=== PATIENT | female | born 1960 | race Hispanic/Latino ===

== ENCOUNTER → 2021-04-22 | Day surgery (SDC) | payer MEDICARE ==
[2021-04-20 13:38] LABS: BASOPHILS % 0.4 % (0.0-1.0); EOSINOPHILS # (AUTO) 0.2 (0.0-0.4); EOSINOPHILS % 2.6 % (0.0-6.0); HEMATOCRIT 32.7 % (34.2-44.1); HEMOGLOBIN 10.8 g/dL (12.0-16.0); LYMPHOCYTES # (AUTO) 2.3 (1.0-3.2); LYMPHOCYTES % 29.4 % (18.0-39.1); MEAN CORPUSCULAR HEMOGLOBIN 28.1 pg (28-32); MEAN CORPUSCULAR VOLUME 84.9 fL (81-99); MONOCYTES # (AUTO) 0.5 (0.2-0.8); MONOCYTES % 6.9 % (4.4-11.3); NEUTROPHILS # (AUTO) 4.7 (2.1-6.9); NEUTROPHILS % 60.4 % (38.7-80.0); PLATELET COUNT 237 x10e3/uL (140-360); RED BLOOD COUNT 3.85 x10e6/uL (3.6-5.1); RED CELL DISTRIBUTION WIDTH 12.4 % (11.7-14.4)
[~2021-04-22] MED LIST: ASPIRIN81 MG PO; EPHEDRINE SULFATE INJ 50 MG/ML VIAL ONE; GLIMEPIRIDE2 MG PO; GLIPIZIDE ER5 MG PO; GLYBURIDE-METF1 EAC1 PO; LIDOCAINE HCL 2% LOCAL INJ 5 ML SDV VIAL INJ ONE; LIPITOR10 MG PO; METOPROLOL SUCC25 MG PO; PLAVIX75 MG PO; PROPOFOL IV EMULSION 10 MG/ML 20 ML VIAL ONE; ZESTRIL10 MG PO
[2021-04-22 08:32] VITALS: BP 150/72
== END | disposition home or self-care (01) ==
LOC: OR 06:22
PROVIDERS: ATTEND Internal Medicine Gastroenterology
DX: Z12.11 Encounter for screening for malignant neoplasm of colon (principal); D12.5 Benign neoplasm of sigmoid colon; K64.8 Other hemorrhoids; I10 Essential (primary) hypertension; E11.9 Type 2 diabetes mellitus without complications; E78.5 Hyperlipidemia, unspecified; Z01.810 Encounter for preprocedural cardiovascular examination; Z01.812 Encounter for preprocedural laboratory examination; Z20.822 Contact with and (suspected) exposure to COVID-19; Z79.02 Long term (current) use of antithrombotics/antiplatelets; Z79.82 Long term (current) use of aspirin; Z79.84 Long term (current) use of oral hypoglycemic drugs; Z86.73 Personal history of transient ischemic attack (TIA), and cerebral infarction without residual deficits; Z86.16 Personal history of COVID-19
CPT/HCPCS: 36415 ×2; 45380; 45381; 82948; 85025; 93005; J2001; J2704; U0002; 45378

== ENCOUNTER 2023-09-07 16:55 | Emergency (ER) | payer MEDICARE ==
[~2023-09-07] VITALS: Ht 160 cm; Wt 82.6 kg
[~2023-09-07 16:55] MED LIST changes: +ALDACTONE25 MG PO; +ASPIRIN EC81 MG PO; +ENTRESTO 49 MG1 EACH; -EPHEDRINE SULFATE INJ 50 MG/ML VIAL ONE; +HUMULIN R100 UNIT/2 INJ; +LANTUS 3ML100 UNITS/; +LASIX40 MG PO; -LIDOCAINE HCL 2% LOCAL INJ 5 ML SDV VIAL INJ ONE; -PROPOFOL IV EMULSION 10 MG/ML 20 ML VIAL ONE
[2023-09-07 17:38] LABS: BASOPHILS % 0.2 % (0.0-1.0); EOSINOPHILS # (AUTO) 0.1 (0.0-0.4); EOSINOPHILS % 1.5 % (0.0-6.0); HEMATOCRIT 30.1 % (34.2-44.1); HEMOGLOBIN 9.4 g/dL (12.0-16.0); LYMPHOCYTES # (AUTO) 0.9 (1.0-3.2); LYMPHOCYTES % 9.6 % (18.0-39.1); MEAN CORPUSCULAR HEMOGLOBIN 27.1 pg (28-32); MEAN CORPUSCULAR HGB CONC 31.2 g/dL (31-35); MEAN CORPUSCULAR VOLUME 86.7 fL (81-99); MONOCYTES # (AUTO) 0.6 (0.2-0.8); MONOCYTES % 6.4 % (4.4-11.3); NEUTROPHILS # (AUTO) 7.5 (2.1-6.9); NEUTROPHILS % 81.9 % (38.7-80.0); PLATELET COUNT 239 x10e3/uL (140-360); RED BLOOD COUNT 3.47 x10e6/uL (3.6-5.1); RED CELL DISTRIBUTION WIDTH 14.2 % (11.7-14.4); WHITE BLOOD COUNT 9.12 x10e3/uL (4.8-10.8)
[2023-09-07 17:50] LABS: ALBUMIN 3.7 g/dL (3.5-5.0); ALBUMIN/GLOBULIN RATIO 1.1 (0.8-2.0); BILIRUBIN,TOTAL 0.7 mg/dL (0.2-1.2); CALCIUM 9.1 mg/dL (8.4-10.2); CREATININE, SERUM 1.18 mg/dL (0.57-1.11); TOTAL PROTEIN 7.2 g/dL (6.5-8.1)
[2023-09-07] MEDS ORDERED: ASPIRIN 325 MG TAB PO STA (18:55)
[2023-09-07] MEDS ORDERED: ASPIRIN 81 MG CHEW TAB ONE (19:09)
[2023-09-07] MEDS ORDERED: HEPARIN 25,000 UNIT DRIP IV ONE (19:11)
[2023-09-07] MEDS: FUROSEMIDE INJ 10 MG/ML 4 ML VIAL IV STA (19:17)
[2023-09-07] MEDS: ASPIRIN 81 MG CHEW TAB PO ONE (19:25)
[2023-09-07 19:39] LABS: INR 1.16; PARTIAL THROMBOPLASTIN TIME 28.1 seconds (23.8-35.5)
[2023-09-07] MEDS: HEPARIN SOD (PORCINE) 1000 UNIT/ML SDV IV ONE (19:43)
[2023-09-07] MEDS: HEPARIN 25,000 UNIT/D5W 250ML 800 UNIT in DEXTROSE 5% 250ML 250 ML IV SCH (19:44)
[2023-09-07 21:57] VITALS: O2SAT 97
== END 2023-09-07 22:05 | disposition other institution (70) ==
LOC: ER 17:04
DX: R06.00 Dyspnea, unspecified (principal); I21.4 Non-ST elevation (NSTEMI) myocardial infarction; I50.9 Heart failure, unspecified; Z11.52 Encounter for screening for COVID-19; R94.31 Abnormal electrocardiogram [ECG] [EKG]
CPT/HCPCS: 36415; 71045; 80053; 83880; 84484; 85025; 85610; 85730; 93005; 99284; J1644; J1940; U0002

== ENCOUNTER 2024-12-11 19:37 | Inpatient (IN) | payer MEDICARE ==
[~2024-12-11] VITALS: Ht 160 cm; Wt 79.4 kg
[2024-12-11 19:42] VITALS: PULSE 64; RESP 19; TEMP 98.4
[2024-12-11 20:25] LABS: BASOPHILS # (AUTO) 0.1 (0.0-0.1); BASOPHILS % 0.6 % (0.0-1.0); EOSINOPHILS # (AUTO) 0.2 (0.0-0.4); EOSINOPHILS % 2.9 % (0.0-6.0); HEMATOCRIT 29.8 % (34.2-44.1); HEMOGLOBIN 9.3 g/dL (12.0-16.0); LYMPHOCYTES # (AUTO) 1.9 (1.0-3.2); LYMPHOCYTES % 23.2 % (18.0-39.1); MEAN CORPUSCULAR HEMOGLOBIN 27.9 pg (28-32); MEAN CORPUSCULAR HGB CONC 31.2 g/dL (31-35); MEAN CORPUSCULAR VOLUME 89.5 fL (81-99); MONOCYTES # (AUTO) 0.5 (0.2-0.8); MONOCYTES % 5.9 % (4.4-11.3); NEUTROPHILS # (AUTO) 5.5 (2.1-6.9); NEUTROPHILS % 67.2 % (38.7-80.0); PLATELET COUNT 247 x10e3/uL (140-360); RED BLOOD COUNT 3.33 x10e6/uL (3.6-5.1); RED CELL DISTRIBUTION WIDTH 16.5 % (11.7-14.4); WHITE BLOOD COUNT 8.19 x10e3/uL (4.8-10.8)
[2024-12-11 20:54] LABS: ALBUMIN 3.7 g/dL (3.5-5.0); ALBUMIN/GLOBULIN RATIO 1.2 (0.8-2.0); BILIRUBIN,TOTAL 0.8 mg/dL (0.2-1.2); CALCIUM 9.1 mg/dL (8.4-10.2); CREATININE, SERUM 1.33 mg/dL (0.57-1.11); TOTAL PROTEIN 6.9 g/dL (6.5-8.1)
[2024-12-11 20:59] LABS: TROPONIN I 0.053 ng/mL (0-0.300)
[2024-12-11] MEDS ORDERED: SODIUM CHLORIDE FLUSH 10 ML SYR INJ PRN (21:30)
[2024-12-11] MEDS ORDERED: Morphine 4mg INJECTION 4 MG/ML INJ IV PRN (21:30)
[2024-12-11] MEDS ORDERED: ONDANSETRON HCL INJ 2MG/ML 2ML 2 MG/ML VIAL IV PRN (21:30)
[2024-12-11] MEDS: FUROSEMIDE INJ 10 MG/ML 4 ML VIAL IV STA (22:06)
[2024-12-11 22:10] VITALS: BP 132/60; PULSE 63; RESP 18; TEMP 97.5; O2SAT 100
[2024-12-11 23:55] VITALS: PULSE 63; RESP 18; O2SAT 93
[2024-12-12] VITALS (10 sets, daily range): BP systolic 105–142; BP diastolic 51–70; PULSE 60–89; RESP 18; TEMP 97.2–98; O2SAT 92–100
[2024-12-12] MEDS ORDERED: TRESIBA FL100 UNIT/1 SC (01:26)
[2024-12-12] MEDS ORDERED: ALDACTONE50 MG PO (01:26)
[2024-12-12] MEDS ORDERED: BUMETANIDE1 MG PO (01:26)
[2024-12-12] MEDS ORDERED: ENTRESTO 24 MG1 EACH PO (01:26)
[2024-12-12] MEDS ORDERED: HUMALOG MI100 UNIT/2 SQ (01:27)
[2024-12-12 05:07] LABS: BASOPHILS % 0.5 % (0.0-1.0); EOSINOPHILS # (AUTO) 0.2 (0.0-0.4); EOSINOPHILS % 2.7 % (0.0-6.0); HEMATOCRIT 28.1 % (34.2-44.1); HEMOGLOBIN 8.8 g/dL (12.0-16.0); LYMPHOCYTES # (AUTO) 1.9 (1.0-3.2); MEAN CORPUSCULAR HEMOGLOBIN 28.1 pg (28-32); MEAN CORPUSCULAR HGB CONC 31.3 g/dL (31-35); MEAN CORPUSCULAR VOLUME 89.8 fL (81-99); MONOCYTES # (AUTO) 0.5 (0.2-0.8); MONOCYTES % 6.3 % (4.4-11.3); NEUTROPHILS # (AUTO) 5.5 (2.1-6.9); NEUTROPHILS % 67.3 % (38.7-80.0); PLATELET COUNT 232 x10e3/uL (140-360); RED BLOOD COUNT 3.13 x10e6/uL (3.6-5.1); RED CELL DISTRIBUTION WIDTH 16.5 % (11.7-14.4); WHITE BLOOD COUNT 8.19 x10e3/uL (4.8-10.8)
[2024-12-12 05:44] LABS: ALBUMIN 3.4 g/dL (3.5-5.0); ALBUMIN/GLOBULIN RATIO 1.2 (0.8-2.0); ANION GAP 15.6 mmol/L (8-16); BILIRUBIN,TOTAL 0.9 mg/dL (0.2-1.2); CALCIUM 8.9 mg/dL (8.4-10.2); CREATININE, SERUM 1.04 mg/dL (0.57-1.11); POTASSIUM 3.6 mmol/L (3.5-5.1); TOTAL PROTEIN 6.3 g/dL (6.5-8.1)
[2024-12-12 05:50] LABS: TROPONIN I 0.042 ng/mL (0-0.300)
[2024-12-12 13:57] LABS: TROPONIN I 0.034 ng/mL (0-0.300)
[2024-12-12] MEDS ORDERED: CLOPIDOGREL75 MG PO (15:45)
[2024-12-12] MEDS: FUROSEMIDE INJ 10 MG/ML 4 ML VIAL IV SCH (15:47)
[2024-12-12] MEDS: ENOXAPARIN SOD INJ 40 MG/0.4 ML SYR SC SCH (17:22)
[2024-12-12] MEDS: SACUBITRIL/VALSARTAN 24MG/26MG 1 EA TAB PO SCH (21:26)
[2024-12-12] MEDS: ATORVASTATIN 40 MG TAB PO SCH (21:27)
[2024-12-12] MEDS ORDERED: DEXTROSE 50% SYRINGE 50 ML IV PRN (21:45)
[2024-12-12] MEDS: INSULIN LISPRO 100 UNIT/1 ML 3ML VIAL SQ SCH (21:59)
[2024-12-13] VITALS (11 sets, daily range): BP systolic 119–139; BP diastolic 53–72; PULSE 59–68; RESP 18–20; TEMP 97–98.4; O2SAT 96–100
[2024-12-13] MEDS: ASPIRIN 81 MG ENTERIC COATED PO SCH (08:26)
[2024-12-13] MEDS: SPIRONOLACTONE 25 MG TAB PO SCH (08:26)
[2024-12-13] MEDS: CLOPIDOGREL BISULFATE 75 MG TAB PO SCH (08:27)
[2024-12-13] MEDS: METOPROLOL SUCCINATE 25 MG TAB XL PO SCH (08:27)
[2024-12-14 03:00] VITALS: BP 106/40; PULSE 62; RESP 18; TEMP 98; O2SAT 100
[2024-12-14 06:50] LABS: BASOPHILS % 0.6 % (0.0-1.0); EOSINOPHILS # (AUTO) 0.3 (0.0-0.4); HEMATOCRIT 27.9 % (34.2-44.1); HEMOGLOBIN 8.8 g/dL (12.0-16.0); LYMPHOCYTES # (AUTO) 1.7 (1.0-3.2); LYMPHOCYTES % 24.4 % (18.0-39.1); MEAN CORPUSCULAR HEMOGLOBIN 27.9 pg (28-32); MEAN CORPUSCULAR HGB CONC 31.5 g/dL (31-35); MEAN CORPUSCULAR VOLUME 88.6 fL (81-99); MONOCYTES # (AUTO) 0.5 (0.2-0.8); MONOCYTES % 7.8 % (4.4-11.3); NEUTROPHILS # (AUTO) 4.3 (2.1-6.9); NEUTROPHILS % 62.8 % (38.7-80.0); PLATELET COUNT 243 x10e3/uL (140-360); RED BLOOD COUNT 3.15 x10e6/uL (3.6-5.1); RED CELL DISTRIBUTION WIDTH 16.3 % (11.7-14.4); WHITE BLOOD COUNT 6.81 x10e3/uL (4.8-10.8)
[2024-12-14 07:17] LABS: ANION GAP 14.9 mmol/L (8-16); CREATININE, SERUM 1.05 mg/dL (0.57-1.11); MAGNESIUM 2.4 MG/DL (1.3-2.1); PHOSPHORUS 3.5 MG/DL (2.3-4.7); POTASSIUM 3.9 mmol/L (3.5-5.1)
[2024-12-14] MEDS: METOLAZONE 5 MG TAB PO SCH (08:50)
[2024-12-14 08:51] VITALS: BP 111/71; PULSE 62; RESP 18; TEMP 97.8; O2SAT 100
[2024-12-14 09:00] VITALS: BP 111/71; PULSE 62; RESP 18; TEMP 97.8; O2SAT 100
[2024-12-14 11:08] VITALS: BP 127/59; PULSE 62; RESP 18; TEMP 97.8; O2SAT 100
[2024-12-14] MEDS: ASCORBIC ACID 500 MG TAB PO SCH (13:30)
[2024-12-14] MEDS: FERROUS SULFATE 325 MG TAB PO SCH (13:30)
[2024-12-14] MEDS ORDERED: IRON325 M1 PO (17:23)
[2024-12-14] MEDS ORDERED: FUROSEMIDE40 MG PO (17:23)
[2024-12-14] MEDS ORDERED: ASCORBIC ACID500 MG PO (17:23)
[2024-12-14] MEDS ORDERED: METOLAZONE5 MG PO (17:23)
[2024-12-14] MEDS ORDERED: ALDACTONE25 MG PO (17:23)
[2024-12-14] MEDS: FUROSEMIDE 40 MG TAB PO SCH (17:44)
[2024-12-15] MEDS ORDERED: SPIRONOLACTONE 25 MG TAB PO SCH (09:00)
== END 2024-12-14 19:25 | disposition home or self-care (01) | DRG 291 ==
LOC: ER 19:46 → ERHOLD 21:21 → MED/SURG 22:20
PROVIDERS: ADMIT Internal Medicine; ATTEND Internal Medicine
DX: I11.0 Hypertensive heart disease with heart failure (principal); I50.23 Acute on chronic systolic (congestive) heart failure; E78.5 Hyperlipidemia, unspecified; I07.1 Rheumatic tricuspid insufficiency; D50.9 Iron deficiency anemia, unspecified; I25.10 Atherosclerotic heart disease of native coronary artery without angina pectoris; Z95.1 Presence of aortocoronary bypass graft; Z95.5 Presence of coronary angioplasty implant and graft; Z95.810 Presence of automatic (implantable) cardiac defibrillator; E11.51 Type 2 diabetes mellitus with diabetic peripheral angiopathy without gangrene; Z79.4 Long term (current) use of insulin; K21.9 Gastro-esophageal reflux disease without esophagitis; D64.9 Anemia, unspecified; Z89.612 Acquired absence of left leg above knee; Z79.899 Other long term (current) drug therapy; Z79.82 Long term (current) use of aspirin; Z79.02 Long term (current) use of antithrombotics/antiplatelets
CPT/HCPCS: 36415; 71045; 80048; 80053; 82550; 82607; 82728; 82746; 82948; 83540; 83690; 83735; 83880; 84100; 84466; 84484; 85025; 85045; 86850; 86900; 93005; 93306; 94799; 96372; 99284; J1650; J1938

== ENCOUNTER 2025-02-12 04:59 | Inpatient (IN) | payer MEDICARE ==
[~2025-02-12] VITALS: Ht 160 cm; Wt 79.4 kg
[2025-02-12] VITALS (11 sets, daily range): BP systolic 100–139; BP diastolic 50–67; PULSE 60–64; RESP 16–24; TEMP 97.6–98.1; O2SAT 97–100
[~2025-02-12 04:59] MED LIST changes: +ALDACTONE50 MG PO; +ASCORBIC ACID500 MG PO; +BUMETANIDE1 MG PO; +CLOPIDOGREL75 MG PO; +ENTRESTO 24 MG1 EACH PO; +FUROSEMIDE40 MG PO; +HUMALOG MI100 UNIT/2 SQ; +IRON325 M1 PO; +METOLAZONE5 MG PO; +TRESIBA FL100 UNIT/1 SC
[2025-02-12 05:23] LABS: BASOPHILS % 0.4 % (0.0-1.0); EOSINOPHILS % 2.1 % (0.0-6.0); LYMPHOCYTES % 20.7 % (18.0-39.1); MONOCYTES % 6.0 % (4.4-11.3); NEUTROPHILS % 70.4 % (38.7-80.0); RED CELL DISTRIBUTION WIDTH 16.2 % (11.7-14.4)
[2025-02-12] MEDS: ASPIRIN 81 MG CHEW TAB PO ONE (05:38)
[2025-02-12 05:48] LABS: EST GLOMERULAR FILTRATION RATE 47.0 ML/MIN (>=60)
[2025-02-12] MEDS ORDERED: Morphine 4mg INJECTION 4 MG/ML INJ IV PRN (06:00)
[2025-02-12] MEDS ORDERED: SODIUM CHLORIDE FLUSH 10 ML SYR INJ PRN (06:00)
[2025-02-12] MEDS ORDERED: ONDANSETRON HCL INJ 2MG/ML 2ML 2 MG/ML VIAL IV PRN (06:00)
[2025-02-12] MEDS ORDERED: METOPROLOL TARTRATE INJ 1 MG/ML VIAL IV PRN (08:45)
[2025-02-12] MEDS ORDERED: ACETAMINOPHEN 325 MG TAB PO PRN (08:45)
[2025-02-12] MEDS ORDERED: DOCUSATE SODIUM 100 MG CAP PO PRN (08:45)
[2025-02-12] MEDS ORDERED: MELATONIN 3 MG TAB PO PRN (08:45)
[2025-02-12] MEDS ORDERED: ALBUTEROL/IPRATROPIUM 3 ML NEB NEB PRN (08:45)
[2025-02-12] MEDS ORDERED: VALSARTAN PO SCH (09:00)
[2025-02-12] MEDS: ASPIRIN 81 MG ENTERIC COATED PO SCH (09:00)
[2025-02-12] MEDS ORDERED: SACUBITRIL PO SCH (09:00)
[2025-02-12] MEDS ORDERED: DEXTROSE 50% SYRINGE 50 ML IV PRN (09:00)
[2025-02-12] MEDS: FUROSEMIDE INJ 10 MG/ML 2 ML VIAL IV SCH (09:37)
[2025-02-12 10:25] LABS: CHOL/HDL RATIO 3.8 (3.0-3.6); LDL CHOLESTEROL 70.0 MG/DL (60-130)
[2025-02-12] MEDS: CLOPIDOGREL BISULFATE 75 MG TAB PO SCH (10:58)
[2025-02-12] MEDS: FERROUS SULFATE 325 MG TAB PO SCH (10:58)
[2025-02-12] MEDS: MIDODRINE HCL 5 MG TABLET PO SCH (10:58)
[2025-02-12] MEDS ORDERED: ROSUVASTATIN CA10 MG PO (11:22)
[2025-02-12] MEDS: INSULIN REGULAR, HUMAN 100 UNIT/1 ML SQ SCH (11:30)
[2025-02-12] MEDS: ENOXAPARIN SOD INJ 40 MG/0.4 ML SYR SC SCH (16:37)
[2025-02-12] MEDS: ATORVASTATIN 40 MG TAB PO SCH (21:04)
[2025-02-13] VITALS (10 sets, daily range): BP systolic 101–164; BP diastolic 50–78; PULSE 59–74; RESP 18–20; TEMP 97.6–98.5; O2SAT 96–100
[2025-02-13 06:16] LABS: BASOPHILS % 0.7 % (0.0-1.0); EOSINOPHILS % 3.0 % (0.0-6.0); LYMPHOCYTES % 18.4 % (18.0-39.1); MONOCYTES % 6.3 % (4.4-11.3); NEUTROPHILS % 71.1 % (38.7-80.0); RED CELL DISTRIBUTION WIDTH 16.4 % (11.7-14.4)
[2025-02-13 06:45] LABS: EST GLOMERULAR FILTRATION RATE 69.0 ML/MIN (>=60)
[2025-02-13] MEDS: METOPROLOL SUCCINATE 25 MG TAB XL PO SCH (09:47)
[2025-02-13] MEDS: SACUBITRIL/VALSARTAN 24MG/26MG 1 EA TAB PO SCH (16:21)
[2025-02-14 03:23] VITALS: BP 115/43; PULSE 62; RESP 18; TEMP 97.9; O2SAT 96
[2025-02-14 07:35] VITALS: PULSE 72; RESP 18; O2SAT 97
[2025-02-14] MEDS ORDERED: TOPROL XL25 MG PO (07:40)
[2025-02-14] MEDS ORDERED: IRON325 M1 PO (07:40)
[2025-02-14] MEDS ORDERED: ROSUVASTATIN CA10 MG PO (07:40)
[2025-02-14] MEDS ORDERED: ENTRESTO 24 MG1 EACH PO (07:40)
[2025-02-14] MEDS ORDERED: ALDACTONE25 MG PO (07:40)
[2025-02-14] MEDS ORDERED: CLOPIDOGREL75 MG PO (07:40)
[2025-02-14] MEDS ORDERED: LASIX20 MG PO (07:40)
[2025-02-14] MEDS ORDERED: MIDODRINE HCL5 MG PO (07:40)
[2025-02-14] MEDS ORDERED: ASPIRIN EC81 MG PO (07:40)
[2025-02-14 08:00] VITALS: BP 117/66; PULSE 60; RESP 17; TEMP 97.7; O2SAT 98
[2025-02-14 09:00] VITALS: BP 117/66; PULSE 60; RESP 17; TEMP 97.7; O2SAT 98
[2025-02-14] MEDS ORDERED: ONDANSETRON HCL 4 MG ORAL DISINTEGRATING TAB PO PRN (11:00)
[2025-02-14 11:45] VITALS: BP 114/54; PULSE 63; RESP 16; TEMP 97.6; O2SAT 97
== END 2025-02-14 13:20 | disposition home or self-care (01) | DRG 280 ==
LOC: ER 05:19 → ERHOLD 05:57 → MED/SURG2 09:53
PROVIDERS: ADMIT Internal Medicine; ATTEND Internal Medicine
DX: I13.0 Hypertensive heart and chronic kidney disease with heart failure and stage 1 through stage 4 chronic kidney disease, or unspecified chronic kidney disease (principal); I50.43 Acute on chronic combined systolic (congestive) and diastolic (congestive) heart failure; I21.A1 Myocardial infarction type 2; N17.9 Acute kidney failure, unspecified; I95.9 Hypotension, unspecified; Z95.1 Presence of aortocoronary bypass graft; E11.51 Type 2 diabetes mellitus with diabetic peripheral angiopathy without gangrene; E11.22 Type 2 diabetes mellitus with diabetic chronic kidney disease; N18.30 Chronic kidney disease, stage 3 unspecified; I25.10 Atherosclerotic heart disease of native coronary artery without angina pectoris; K21.9 Gastro-esophageal reflux disease without esophagitis; R53.81 Other malaise; T50.2X6A Underdosing of carbonic-anhydrase inhibitors, benzothiadiazides and other diuretics, initial encounter; Z91.138 Patient's unintentional underdosing of medication regimen for other reason; Z79.02 Long term (current) use of antithrombotics/antiplatelets; Z79.4 Long term (current) use of insulin; Z79.82 Long term (current) use of aspirin; Z89.612 Acquired absence of left leg above knee; Z99.3 Dependence on wheelchair; Z95.810 Presence of automatic (implantable) cardiac defibrillator; Z88.1 Allergy status to other antibiotic agents
CPT/HCPCS: 36415; 71045; 80053; 80061; 82550; 82948; 83036; 83690; 83880; 84484; 85025; 86850; 86900; 93005; 93306; 94799; 99284; J1650; J1938